=== PATIENT | male | born 1975 | race African-American/Black ===

== ENCOUNTER 2020-05-29 14:53 | Observation (INO) | payer BC, SELFPAY ==
--- NOTE | ~2020-05-29 | XR_ITS ---
EXAMINATION: XR chest 2V DATE: 05/29/2020 15:59 INDICATION: Chest pain and shortness of breath TECHNIQUE: PA and lateral views of the chest were obtained. COMPARISON: None FINDINGS: The lungs are clear with no focal airspace opacities, pulmonary edema, pleural effusion or pneumothor ax. The cardiomediastinal silhouette is normal. Mild thoracic spondylosis. IMPRESSION: 1. No acute cardiopulmonary disease. Reviewed, dictated and finalized at location B.
--- NOTE | 2020-05-29 14:53 | ED.CHESTPAIN ---
HPI - Chest Pain General Chief Complaint: Anxiety Stated Complaint: CP Time Seen by Provider: 05/29/20 14:53 Source: patient and family Mode of arrival: EMS Limitations: no limitations History of Present Illness HPI narrative: Patient is a 45-year-old male with a history of hypertension who presents for evaluation of chest pain. Patient states he was watching his grandchildren, watching television when he suddenly had a central chest discomfort. He had radiation of the pain is to his left arm with associated left arm heaviness. He felt like his left hand was cramping. He reports associated nausea, diaphoresis and shortness of breath. EMS was called, patient's gave him 10 mg of oral lisinopril, and EMS gave the patient 4 baby aspirin. At the time of my assessment, patient has no recurrent chest pain, shortness of breath or nausea. Patient smokes tobacco products. He denies other drug use. He denies any history of hyperlipidemia. Related Data Home Medications Medication Instructions Recorded Confirmed alprazolam [Xanax] 0.5 mg PO BID PRN 05/29/20 lisinopril 20 mg PO DAILY 05/29/20 Allergies Allergy/AdvReac Type Severity Reaction Status Date / Time No Known Allergies Allergy Verified 05/29/20 15:02 Review of Systems Review of Systems: Narrative: CONSTITUTIONAL: Denies fever, chills, reports feeling diaphoretic earlier EYES: Denies visual changes ENT: Denies rhinorrhea, congestion, sore throat, or otalgia. CARDIOVASCULAR: Denies current chest pain, palpitations or edema RESPIRATORY: Denies current cough or dyspnea. GASTROINTESTINAL: Denies abdominal pain, nausea, vomiting, or diarrhea. GENITOURINARY: Denies dysuria or hematuria. SKIN: Denies rash or itching. MUSCULOSKELETAL: Denies back pain, joint pain, or myalgia. NEUROLOGIC: Denies headache, numbness, or weakness. [facility] Past Medical History Medical History Hypertension Social History Social History (Updated 05/29/20 @ 15:17 by Bing Romero MD) Smoking status: Current every day smoker Tobacco type: cigarettes Alcohol intake: never Substance use: never Living arrangements: with family Gender identity (if verbalized by the patient): Male Exam Narrative: Exam Narrative: GENERAL: Awake, alert, conversant HEAD: Normocephalic, atraumatic. EYES: PERRLA and EOMI. ENT: Nares clear, no rhinorrhea or epistaxis. Mucous membranes moist. NECK: Supple. CHEST: No respiratory distress, breathing even and non labored, no chest wall tenderness HEART: Regular rate, sinus rhythm ABDOMEN:Non distended, non tender EXTREMITIES: Normal range of motion. No edema. SKIN: Warm, dry, no rash. NEURO:No focal deficits. Alert and oriented x3 Course Vital Signs Vital signs: Vital Signs Temperature 37.2 C 05/29/20 14:57 Pulse Rate 70 05/29/20 14:57 Respiratory Rate 18 05/29/20 14:57 Blood Pressure 185/109 H 05/29/20 14:57 Pulse Oximetry 100 05/29/20 14:57 Temperature 37.2 C 05/29/20 14:57 Pulse Rate 62 05/29/20 16:22 Respiratory Rate 20 05/29/20 16:22 Blood Pressure 157/99 H 05/29/20 16:22 Pulse Oximetry 99 05/29/20 16:22 MDM - Chest Pain MDM Narrative Medical decision making narrative: Patient presenting for evaluation of chest pain. Patient was some subtle inferior, anterior EKG changes, but no STEMI. IV access obtained, EKG was repeated and there were no acute changes. Patient without recurrent chest pain in the ER. Laboratory results show no elevation in troponin. Patient was quite hypertensive and was given Norvasc per recommendation of english adjunct faculty Dr. Buenrostro. Given patient has a heart score of 5, will admit to chest pain center for rule out and further evaluation. Differential Diagnosis Differential diagnosis: Likely stable angina, unstable angina pectoris, atypical chest pain, st elevation myocardial infarction, costochondritis and chest pain Lab
[2020-05-29 14:57] VITALS: BP 185/109; PULSE 70; RESP 18; TEMP 37.2; O2SAT 100
--- NOTE | 2020-05-29 14:57 | ECG_ITS ---
Measurements Intervals [place] Rate: 75 P: 63 ME: 166 QRS: 28 QRSD: 86 T: -57 QT: 393 QTc: 441 Interpretive Statements SINUS RHYTHM BORDERLINE ST-T WAVE ABNORMALITY- INF/LAT LEADS BORDERLINE ECG Electronically Signed On 05-29-2020 17:45:06 CDT by Morro Wei D.O.
[2020-05-29 15:16] LABS: Basophils Absolute Auto 0.1 K/mm3 (0.0-0.1); Basophils Percent Auto 0.4 % (0.2-1.2); Eosinophils Absolute Auto 0.1 K/mm3 (0-0.3); Eosinophils Percent Auto 1.2 % (0-4.4); Hemoglobin 15.1 g/dL (14.0-18.0); Immature Granulocyte Absolute 0.03 K/mm3 (0.00-0.031); Immature Granulocyte Percent A 0.3 % (0-0.5); Lymphocytes Absolute Auto 1.24 K/mm3 (0.9-3.2); Lymphocytes Percent Auto 10.5 % (18.3-44.2); Mean Corpuscular HGB Conc 32.8 g/dl (32-36); Mean Corpuscular Hemoglobin 27.7 pg (26-34); Mean Corpuscular Volume 84.2 fl (80-100); Mean Platelet Volume 9.4 fl (7.4-10.4); Monocytes Absolute Auto 0.8 K/mm3 (0.1-0.6); Monocytes Percent Auto 6.3 % (2.6-8.5); Neutrophils Absolute Auto 9.6 K/mm3 (1.3-6.7); Neutrophils Percent Auto 81.3 % (45.5-73.1); Platelet Count Result 321 k/mm3 (150-375); Red Blood Count 5.46 M/mm3 (4.6-6.20); White Blood Count 11.8 K/mm3 (4.5-10.0)
--- NOTE | 2020-05-29 15:22 | ECG_ITS ---
Measurements Intervals [place] Rate: 72 P: 58 MD: 167 QRS: 20 QRSD: 88 T: -54 QT: 390 QTc: 429 Interpretive Statements SINUS RHYTHM ST-T WAVE ABNORMALITY- INFERIOR LEADS- CONSIDER ISCHEMIA ABNORMAL ECG Electronically Signed On 05-29-2020 15:47:19 CDT by Morro Wei D.O.
[2020-05-29 15:26] LABS: Anion Gap 6 mmol/L (8-16); Blood Urea Nitrogen 10 mg/dL (9-20); Calcium 9.1 mg/dL (8.4-10.2); Carbon Dioxide 28 mmol/L (22-30); Chloride 104 mmol/L (98-107); Estimated CRCL calculation 66 ml/min; Estimated Glomerular Filt Rate > 60; Glucose 107 mg/dL (75-110); Potassium 3.7 mmol/L (3.4-5.0); Sodium 138 mmol/L (137-145)
[2020-05-29 15:28] LABS: Partial Thromboplastin Time 28.3 SECONDS (22.3-36.8); Prothrombin Time 12.7 Seconds (11.1-14.7)
[2020-05-29 15:38] LABS: Troponin I < 0.012 ng/mL (0.000-0.034)
[2020-05-29 16:22] VITALS: BP 157/99; PULSE 62; RESP 20; O2SAT 99
[2020-05-29] MEDS: SODIUM CHLORIDE 0.9% IV 1,000 ML 999 ML IV CONT (16:22)
[2020-05-29] MEDS: ONDANSETRON INJ 4 MG/2 ML VIAL IV PUSH (16:22)
[2020-05-29 16:31] VITALS: BP 158/93; PULSE 76; RESP 13; O2SAT 100
[2020-05-29 17:00] VITALS: BP 164/95; PULSE 61; RESP 17; O2SAT 100
[2020-05-29] MEDS: amLODIPine BESYLATE 5 MG TABLET PO (17:01)
[2020-05-29 18:17] VITALS: BP 151/94; PULSE 63; RESP 23; O2SAT 98
[2020-05-29 18:27] LABS: Troponin I < 0.012 ng/mL (0.000-0.034)
--- NOTE | 2020-05-29 19:58 | ADMGEN ---
This patient, Michael Medina, was admitted to IMU Room 210-. Patient/family oriented to hospital policies and general routines including ID bracelet, bed and alarms, visiting hours, pain management, procedures, bathroom and other care routines, personal items, smoking policy, room service/diet, and visiting hours. Valuables list has been completed. Information on how to activate the Rapid Response Team has been discussed. Patient/Family are encouraged to report perceived risks to care and to ask questions if they do not understand what they are told or what they should do. Pt arrived at approx 1900
[2020-05-29 20:00] VITALS: PULSE 76
[2020-05-29 20:01] VITALS: BMI 26.1
--- NOTE | 2020-05-29 20:31 | PC.NURSE ---
Pt signed out AMA. IV removed, belonging with patient, walked him to the door, and notified Dr. Godfrey
--- NOTE | 2020-05-30 19:58 | PM.IMHP ---
H&P: HPI History of Present Illness Date/Time: 05/30/20 19:58 was admitted with chest pain, he singed AMA in few hours Chief complaint: chest pain Narrative: Michael Medina is a 45 year old male [facility] Past Medical History Medical History Hypertension Family History Family History (Updated 05/29/20 @ 19:45 by Linda Edmonds RN) Mother Diabetes mellitus Father Hypertension Social History Social History (Updated 05/29/20 @ 15:17 by Bing Romero MD) Smoking status: Current every day smoker Tobacco type: cigarettes Alcohol intake: never Substance use: never Living arrangements: with family Gender identity (if verbalized by the patient): Male Spiritual care concerns: No Meds Home Medications and Allergies Home Medications Medication Instructions Recorded Confirmed Type alprazolam [Xanax] 0.5 mg PO BID PRN 05/29/20 History lisinopril 20 mg PO DAILY 05/29/20 History Allergies Allergy/AdvReac Type Severity Reaction Status Date / Time No Known Allergies Allergy Verified 05/29/20 15:02 Vital Signs Vital Signs - 24 hr 05/29/20 20:00 Pulse Rate 76 Assessment and Plan Assessment and plan (1) Chest pain: Qualifiers: Chest pain type: unspecified Qualified Code(s): R07.9 - Chest pain, unspecified Code(s): R07.9 - Chest pain, unspecified Status: Acute Assessment and Plan: Troponin is negative He wants to leave AMA I did not get a chance to see him and examine him
== END 2020-05-29 20:25 | disposition left against medical advice (07) ==
LOC: ANHED 16:36 → ANHIMU 18:24
PROVIDERS: Admitting Provider Specialist; Emergency Provider Emergency Medicine; Visit Provider Specialist
DX: R07.9 Chest pain, unspecified (principal); F17.210 Nicotine dependence, cigarettes, uncomplicated; I10 Essential (primary) hypertension
CPT/HCPCS: 36415; 71046; 80048; 84484; 85025; 85610; 85730; 93005; 96365; 96375; 99285; A9270; G0378; G0379; J0131; J2405; J7030